=== PATIENT | female | born 1945 | race Caucasian/White ===

== ENCOUNTER 2016-07-29 11:40 | Emergency (ER) | payer MEDICARE, MEDICAID ==
--- NOTE | 2016-07-29 12:12 | ED Physician Chart ---
Chief Complaint/HPI - Patient Information Date Seen:: 07/29/16 Time Seen:: 12:00 Chief Complaint:: RIGHT KNEE PAIN History of Present Illness:: THIS IS A 71 YEAR OLD FEMALE WITH THE SUDDEN ONSET OF PAIN AND SWELLING OF THE RIGHT KNEE. SHE DENIES ANY RECENT TRAUMA OR OLD TRAUMA. SHE STATES THAT SHE HAD VEIN REMOVE FROM BOTH LOWER LEGS. SHE DENIES SWOLLEN LEGS OR ARTHRITIS OF ANY JOINTS. THE KNEE HAS NOT BEEN WARM OR TENDER BUT HURTS WHEN THE KNEE IS FLEXED AND EXTENDED. Allergies:: Allergies Allergy/AdvReac Type Severity Reaction Status Date / Time No Known Allergies Allergy Verified 07/29/16 11:57 Vitals:: Vital Signs - 8 hr 07/29/16 11:58 Temp 98.4 F HR 86 RR 16 BP 139/69 O2 Sat % 98 Historian:: Patient Review:: Nurse's Note Reviewed Review of Systems - Review of Systems General/Constitutional: No fever, No chills, No weight loss, No weakness, No diaphoresis, No edema, No loss of appetite Skin: No skin lesions, No rash, No bruising Head: No headache, No light-headedness Eyes: No loss of vision, No pain, No diplopia ENT: No earache, No nasal drainage, No sore throat, No tinnitus Neck: No neck pain, No swelling, No thyromegaly, No stiffness, No mass noted Cardio Vascular: No chest pain, No palpitations, No PND, No orthopnea, No edema Pulmonary: No SOB, No cough, No sputum, No wheezing GI: No nausea, No vomiting, No diarrhea, No pain, No melena, No hematochezia, No constipation, No hematemesis G/U: No dysuria, No frequency, No hematuria Musculoskeletal: Bone or joint pain, No back pain, No muscle pain Endocrine: No polyuria, No polydipsia Psychiatric: No prior psych history, No depression, No anxiety, No suicidal ideation Hematopoietic: No bruising, No lymphadenopathy Allergic/Immuno: No urticaria, No angioedema Neurological: No syncope, No focal symptoms, No weakness, No paresthesia, No headache, No seizure, No dizziness, No confusion, No vertigo Past Medical History - Past Medical History Obtainable: Yes Past Medical History: HTN Family History: None Social History: Non Smoker, No Alcohol, No Drug Use, Lives With Parents Surgical History: Hernia, other (VEIN STRIPPINGS) Family Medical History - Family Member Son History Unknown: Yes Ethnicity: Hx Family Cancer: No Hx Family Coronary Artery Disease: No Hx Family Stroke: No Hx Family Diabetes: No Hx Family Seizures: No Hx Family Dementia: No Hx Family AIDS: No Hx Family COPD: No Hx Family Hepatitis: No Hx Family Psychiatric Problems: No Physical Exam - Physical Examination General/Constitutional: Awake, Well-developed, well-nourished, Alert, No distress, GCS 15, Non-toxic appearing, Ambulatory Head: Atraumatic Eyes: Lids, conjuctiva normal, PERRL, EOMI Skin: Nl inspection, No rash, No skin lesions, No ecchymosis, Well hydrated, No lymphadenopathy ENMT: External ears, nose nl, Nasal exam nl, Lips, teeth, gums nl Neck: Nontender, Full ROM w/o pain, No JVD, No nuchal rigidity, No bruit, No mass, No stridor Respiratory: Nl effort/Exclusion, Clear to Auscultation, No Wheeze/Rhonchi/Rales Cardio Vascular: RRR, No murmur, gallop, rubs, NL S1 S2 GI: No tenderness/rebounding/guarding, No organomegaly, No hernia, Normal BS's, Nondistended, No mass/bruits, No McBurney tenderness : No CVA tenderness Extremities: No tenderness or effusion, Full ROM, normal strength in all extremities, No edema, Normal digits & nails Neuro/Psych: Alert/oriented, DTR's symmetric, Normal sensory exam, Normal motor strength, Judgement/insight normal, Mood normal, Normal gait, No focal deficits Misc: normal gait, Normal back, No paraspinal tenderness Labs/Radiology/EKG Results - Radiology Results Results: knee ct scan = ac's cyst right knee ED Septic Shock - . Is Septic Shock (SBP<90, OR Lactate>4 mmol\L) present?: No - <6hrs of presentation: Vital Signs: Vital Signs - 8 hr 07/29/16 11:58 Temp 98.4 F HR 86 RR 16 BP 139/69 O2 Sat % 98 Reassessment (Disposition) - Reassessment Reassessment Condition:: Improved - Diagnosis Diagnosis:: ac's cyst of the right knee - Aftercare/Follow up Instructions Aftercare/Follow-Up Instructions:: Counseled pt regarding lab results/diagnosis & need follow up, Refer to Discharge Instructions, Counseled pt & family regarding lab results/diagnosis & need follow up Medication Prescribed:: motrin - Patient Disposition Discharge/Transfer:: Home Condition at Disposition:: Improved ED Discharge Plan - Patient Disposition Admit/Discharge/Transfer: PT DISCHARGED HOME Condition at Disposition: Improved
--- NOTE | 2016-07-29 13:41 | Diagnostic Imaging Report ---
Right knee 3 views Indication: pain Comparison: none Findings: Mild degenerative changes are noted. No evidence of acute fracture. A small joint effusion is noted. Distal quadriceps spurring is noted. Atherosclerosis is noted. Nonspecific calcifications are seen within the soft tissues. Postsurgical changes of the calf region is noted. Impression: No evidence of an acute fracture. Mild degenerative changes Atherosclerotic vascular disease. Postsurgical changes of the calf region. In the setting of trauma, if clinical symptoms persist and there is continued concern for an occult fracture, follow up exams in 5-7 days is suggested.
--- NOTE | 2016-07-29 14:15 | Diagnostic Imaging Report ---
CT right knee without IV contrast History: Pain Comparison: Right knee x-rays the same day Technique: Axial images were obtained from the distal femur to the proximal tibia without IV contrast. Reconstructions were made. Total DLP 186, CTD I 7 Findings: There is subtle lucency seen along the anterior mid pole of the patella nonspecific and may resent vascular channels versus less likely nondisplaced fractures. There is slight indentation of the medial femoral condyle. A subchondral impaction injury cannot be excluded. A moderate-sized knee effusion is seen greatest medially. Osteopenia is noted. Varicose veins are noted. Mild degenerative changes of the knee joint are noted with small cystic changes of the tibial plateau. Atherosclerosis is noted. A 2.5 cm Mcnulty's cyst is noted. IMPRESSION: Subtle lucency seen along the anterior patella, nonspecific, and may represent vascular channels, however, nondisplaced fractures cannot be excluded. Moderate size knee effusion, greatest medially. There is also slight indentation involving the weightbearing surface of the medial tibial plateau. A subchondral impaction injury cannot be excluded. If there has been recent trauma, MRI is recommended for further assessment. Generalized subcutaneous edema. Mild degenerative changes 2.5 cm Mcnulty's cyst.
== END 2016-07-29 14:43 | disposition home or self-care (01) ==
LOC: ER 11:40
DX: M71.21 Synovial cyst of popliteal space [Baker], right knee (principal); I10 Essential (primary) hypertension
CPT/HCPCS: 73562-TC-RT; 73700-TC-RT; Z7502